=== PATIENT | female | born 1985 | race African-American/Black ===

== ENCOUNTER 2017-07-08 14:57 | Emergency (ER) | payer MEDICAID, OTHER ==
[~2017-07-08 14:57] MED LIST: EXTR500C PO
[2017-07-08] MEDS ORDERED: PROZ20CA11 PO (15:46)
--- NOTE | 2017-07-08 15:46 | PD ---
HPI Chief Complaint: Depression Time Seen by Provider: 15:33 Travel History International Travel<30 days: No Contact w/Intl Traveler<30days: No Traveled to known affect area: No History of Present Illness HPI So 32-year-old woman, recently , history of depression, worsening depression symptoms. Presented to the ED with her child after she took her child to a fire station and wanted to given up for adoption. She was seen by the online trader who discussed her case with the psychiatrist. He denies as to see the patient by the online trader I was asked to see the patient by the online trader. Patient's been increasingly depressed, does have strong social support system. History Past Medical History Medical History: Denies Significant Hx Past Surgical History Surgical History: No Previous Surgery Social History Alcohol Use: No Tobacco Use: No Allergies-Medications (Allergen,Severity, Reaction): Coded Allergies: No Known Allergies (Unverified , 04/16/16) Reported Meds & Prescriptions Reported Meds & Active Scripts Active Reported Extra Strength Acetaminop (Acetaminophen) 500 Mg Cap 500 Mg PO BID PRN Review of Systems Except as stated in HPI: all other systems reviewed are Neg Physical Exam Narrative GENERAL: Well-appearing 32-year-old, no acute distress. SKIN: Focused skin assessment warm/dry. HEAD: Atraumatic. Normocephalic. EYES: Pupils equal and round. No scleral icterus. No injection or drainage. ENT: No nasal bleeding or discharge. Mucous membranes pink and moist. NECK: Trachea midline. No JVD. CARDIOVASCULAR: Regular rate and rhythm. No murmur appreciated. RESPIRATORY: No accessory muscle use. Clear to auscultation. Breath sounds equal bilaterally. GASTROINTESTINAL: Abdomen soft, non-tender, nondistended. Hepatic and splenic margins not palpable. MUSCULOSKELETAL: No obvious deformities. No clubbing. No cyanosis. No edema. NEUROLOGICAL: Awake and alert. No obvious cranial nerve deficits. Motor grossly within normal limits. Normal speech. PSYCHIATRIC: Some depression symptoms. No SI. MDM Medical Decision Making Medical Screen Exam Complete: Yes Emergency Medical Condition: Yes Differential Diagnosis Depression, depression, weakness, other Narrative Course Medical decision making 32-year-old woman, depression. Discussed and passing with psychiatry. Patient does not need emergency hospitalization. Would benefit from medication, and outpatient follow-up with counseling. She has strong family support. Recommend medication and outpatient follow-up. Diagnosis Primary Impression: depression Referrals: [facility] week Patient Instructions: General Instructions Additional Instructions: Follow-up with [facility] or mental health resources. Return to the emergency department for any new or worsening symptoms. Med/Other Pt SpecificInfo: Prescription(s) given Scripts Fluoxetine (Prozac) 20 Mg Cap 20 MG PO DAILY, #30 CAP 0 Refills Prov: Lawrence Trujillo MD 07/08/17 Disposition: 01 DISCHARGE HOME Condition: Stable Lawrence Trujillo MD Jul 08, 2017 15:46
[2017-07-08 16:37] VITALS: BP 148/82; PULSE 98; RESP 16; TEMP 98.4; O2SAT 99
== END 2017-07-08 16:52 | disposition home or self-care (01) ==
LOC: NEPA 14:57
DX: F53 Mental and behavioral disorders associated with the puerperium, not elsewhere classified (principal)
CPT/HCPCS: 99283